=== PATIENT | female | born 1955 | race Asian ===

== ENCOUNTER → 2017-08-20 | Outpatient (CLI) | payer OTHER | LOC: BRMIMAGING 08:59 → MERGE 08:59 → EDSEX 08:59 | PROVIDERS: ATTEND Internal Medicine | DX: M25.572 Pain in left ankle and joints of left foot (principal); M25.531 Pain in right wrist; M25.532 Pain in left wrist; M25.831 Other specified joint disorders, right wrist; M25.832 Other specified joint disorders, left wrist | CPT/HCPCS: 73110-PO; 73610-PO ==

== ENCOUNTER → 2017-08-22 | Outpatient (CLI) | payer OTHER | LOC: MERGE 09:52 → BRMIMAGING 09:52 | PROVIDERS: ATTEND Internal Medicine | DX: S59.902A Unspecified injury of left elbow, initial encounter (principal) | CPT/HCPCS: 73080-PO ==

== ENCOUNTER → 2017-10-25 | Outpatient (CLI) | payer OTHER | LOC: BRMIMAGING 10:33 | PROVIDERS: ATTEND Internal Medicine | DX: M25.532 Pain in left wrist (principal) | CPT/HCPCS: 73110-PO ==